=== PATIENT | female | born 1950 | race Caucasian/White ===

== ENCOUNTER 2019-08-19 13:15 | Observation (INO) | payer MEDICARE, OTHER ==
[~2019-08-19] VITALS: Ht 266.7 cm; Wt 60.9 kg
[2019-08-19] VITALS (7 sets, daily range): BP systolic 132–186; BP diastolic 65–90; Ht 266.7 cm; Wt 60.9 kg
[~2019-08-19 13:15] MED LIST: ASPIRIN EC81 M1 PO; BIOTIN5 MG PO; BYSTOLIC5 MG PO; CALCIUM CITRATE1 TAB PO; CELEXA20 MG PO; FISH OIL 1,2001 CA1 PO; FLAXSEED OIL1000 MG PO; MOBIC7.5 MG PO; MULTIPLE VITAMI1 TA1 PO; STOOL SOFTENER240 MG PO; SUPER B COMPLE150 MG PO; SYNTHROID88 MCG PO; VITAMIN D5000 UNIT PO; VITAMIN E400 UNI2 PO; VIVELLE-DO1 PATCH.B2 TD; probiotic
[2019-08-19] MEDS ORDERED: COZAAR100 MG PO (13:40)
[2019-08-19 14:08] LABS: BASOPHILS 0.5 % (0-2); EOSINOPHILS 2.2 % (0-7); HEMATOCRIT 39.4 % (36.0-48.0); HEMOGLOBIN 12.8 g/dL (12-16); IMMATURE GRANULOCYTES 0.3 % (0-5); MCH 32.1 pg (26.0-34.0); MCHC 32.5 g/dL (31.0-37.0); MCV 98.7 fL (80.0-100.0); MEAN PLATELET VOLUME 10.5 fL (7.4-10.4); MONOCYTES 12.6 % (2-11); NEUTROPHILS 55.4 % (40-80); RBC 3.99 10x6/uL (4.00-5.40); RDW 12.4 % (11.5-14.5); WBC 3.7 10x3/uL (4.8-10.8)
--- NOTE | 2019-08-19 14:10 | NUR ---
PT STATES SHE DOES NOT WANT TO TAKE NITRO BECAUSE SHE IS ARAID IT WILL MAKE HER BP TOO LOW.
[2019-08-19 14:16] LABS: CALC OSMOLALITY 275 mosm/kg (275-300); CARBON DIOXIDE 31.5 mmol/L (21.0-32.0); CHLORIDE - SERUM 103 mmol/L (98-107); CREATININE - SERUM 0.9 mg/dL (0.6-1.3); GLUCOSE 89 mg/dL (74-106); PLATELET COUNT 192 10x3/uL (130-400); POTASSIUM - SERUM 3.8 mmol/L (3.5-5.1); SODIUM 138 mmol/L (136-145); UREA NITROGEN 15 mg/dL (7-18); eGFR NON AFRICAN AMERICAN 66 mL/min (90-120)
[2019-08-19 14:18] LABS: PROTIME 13.2 SECONDS (11.6-15.0)
[2019-08-19 14:20] LABS: D-DIMER-QUANTITATIVE 0.3 ug/mLFEU (0.20-0.54)
[2019-08-19 14:32] LABS: ALBUMIN 3.6 g/dL (3.4-5.0); ALKALINE PHOSPHATASE 72 U/L (30-120); ALT (SGPT) 16 U/L (10-68); BILIRUBIN - TOTAL 0.45 mg/dL (0.2-1.3); CKMB 0.7 U/L (0.0-3.6); CREATINE KINASE 40 UL (21-215); MAGNESIUM - SERUM 1.9 mg/dL (1.8-2.4); PROTEIN - SERUM 7.1 g/dL (6.4-8.2); TROPONIN-I < 0.017 ng/mL (0.000-0.060)
--- NOTE | 2019-08-19 15:10 | NUR ---
PT RESTING IN POSITION OF COMFORT, DENIES NEEDS. PT IN NO DISTRESS, AT BEDSIDE. WILL CONTINUE TO MONITOR.
--- NOTE | 2019-08-19 15:50 | NUR ---
PT AMBULTORY TO BATHROOM AT THIS TIME.
--- NOTE | 2019-08-19 16:11 | NUR ---
NO CLINICAL CHANGES, PT RESTING IN POSITION OF COMFORT. PT DENIES NEEDS. WILL CONTINUE TO MONITOR. AT BEDSIDE.
--- NOTE | 2019-08-19 17:11 | NUR ---
PT RESTING IN POSITION OF COMFORT, DENIES FURTHER NEEDS. AT BEDSIDE. WILL CONTINUE TO MONITOR.
--- NOTE | 2019-08-19 19:00 | NUR ---
RECEIVED BEDSIDE REPORT. PATIENT IS ALERT AND ORIENTED, RESTING COMFORTABLY IN BED. RESPIRATIONS ARE EVEN AND UNLABORED. NO S/S OF DISTRESS. NO C/O PAIN. CALL LIGHT WITHIN REACH. WILL CPOC.
[2019-08-19 20:33] LABS: CKMB 0.6 U/L (0.0-3.6); CREATINE KINASE 37 UL (21-215); TROPONIN-I < 0.017 ng/mL (0.000-0.060)
[2019-08-20 02:47] LABS: BASOPHILS 0.7 % (0-2); EOSINOPHILS 2.9 % (0-7); HEMATOCRIT 37.7 % (36.0-48.0); HEMOGLOBIN 12.1 g/dL (12-16); IMMATURE GRANULOCYTES 0.2 % (0-5); LYMPHOCYTES 35.5 % (15-50); MCH 31.3 pg (26.0-34.0); MCHC 32.1 g/dL (31.0-37.0); MCV 97.7 fL (80.0-100.0); MONOCYTES 13.5 % (2-11); NEUTROPHILS 47.2 % (40-80); PLATELET COUNT 185 10x3/uL (130-400); RBC 3.86 10x6/uL (4.00-5.40); RDW 12.3 % (11.5-14.5); WBC 4.5 10x3/uL (4.8-10.8)
[2019-08-20 03:08] LABS: ALBUMIN 3.3 g/dL (3.4-5.0); ALKALINE PHOSPHATASE 63 U/L (30-120); BILIRUBIN - TOTAL 0.35 mg/dL (0.2-1.3); CALC OSMOLALITY 273 mosm/kg (275-300); CALCIUM 8.4 mg/dL (8.5-10.1); CARBON DIOXIDE 30.6 mmol/L (21.0-32.0); CHLORIDE - SERUM 104 mmol/L (98-107); CKMB 0.7 U/L (0.0-3.6); CREATINE KINASE 32 UL (21-215); CREATININE - SERUM 0.7 mg/dL (0.6-1.3); GLUCOSE 84 mg/dL (74-106); MAGNESIUM - SERUM 1.9 mg/dL (1.8-2.4); POTASSIUM - SERUM 3.9 mmol/L (3.5-5.1); PROTEIN - SERUM 6.2 g/dL (6.4-8.2); SODIUM 137 mmol/L (136-145); UREA NITROGEN 16 mg/dL (7-18); eGFR NON AFRICAN AMERICAN 88 mL/min (90-120)
[2019-08-20 03:09] LABS: ALT (SGPT) 5 U/L (10-68); TROPONIN-I < 0.017 ng/mL (0.000-0.060)
[2019-08-20 04:00] VITALS: BP 121/58
--- NOTE | 2019-08-20 07:15 | NUR ---
RECEIVED PT IN BED AAOX4 RESP UNLABORED SKIN W/D COLOR WNL NAD NOTED
[2019-08-20 08:40] VITALS: BP 183/65
[2019-08-20 09:00] VITALS: BP 128/58; BP 128/583
[2019-08-20 11:00] VITALS: BP 133/64
--- NOTE | 2019-08-20 14:30 | NUR ---
REVIEWED DISCHARGE INSTRUCTIONS WITH PT STATES UNDERSTANDING COPY GIVEN DCD SALINE LOCK TO LT HAND WITH IV CATHETER INTACT SITE FREE OF REDNESS OR EDEMA PT DISCHARGED TO HOME IN STABLE CONDITION LEFT UNIT WALKING WITH ALL PERSONAL BELONGINGS ESCORTED BY STAFF
--- NOTE | 2019-08-22 11:22 | CN ---
PATIENT NAME:WESTON RAYMUNDO MEDICAL RECORD: [id number] : 48 LOCATION:D.M2 D.2114 ADMIT DATE: 08/19/19 ACCOUNT: [id number] CONSULTING PHYSICIAN: MELANIE BUCIO MD REFERRING PHYSICIAN: ALEKSANDRA MARS MD DATE OF CONSULTATION: 08/20/2019 HISTORY OF PRESENT ILLNESS: A 68-year-old female with history of hypertension, "leaky valve" apparently with chest pain, right upper extremity and shoulder, pains wax and wane, radiation to the right shoulder than the left shoulder, then back to the scapula, not consistent with exertion, has reported more tiredness, fatigue, although has not been exercising previously. We are asked to see her concerning her cardiovascular status. PAST MEDICAL HISTORY: Includes; 1. History of hypertension. 2. Hypothyroidism, on replacement. 3. Questionable leaky valve. 4. Anxiety. ALLERGIES: LISINOPRIL, HYDROCODONE. MEDICATIONS: Include losartan 50 mg p.o. b.i.d., Celexa 20 every day, Mobic 7.5 b.i.d., Synthroid 44 mcg daily. SOCIAL HISTORY: Nonsmoker, nondrinker. Easily does take care of all her ADLs. Does walk on a regular basis typically. REVIEW OF SYSTEMS: The patient reports easy bruising but reports no swollen glands. The patient reports no fever, no night sweats, no significant weight gain, no significant weight loss. No significant exercise tolerance. The patient reports no dry eyes, no irritation, no vision change. Patient reports no difficulty hearing and no ear pain. Patient reports no frequent nose bleeds or nose and sinus problems. Patient reports on arm pain on exertion. No shortness of breath while lying down. No history of heart murmur. Patient reports no cough, no wheezing or coughing up blood. Patient reports no abdominal pain, no vomiting. Normal appetite. No diarrhea and not vomiting blood. No nausea and no constipation. Patient reports no incontinence. No difficulty urinating. No hematuria. No increased frequency. Patient reports no muscle aches. No weakness, no arthralgias, no back pain. No swelling of the extremities. Patient reports no abnormal mole, no jaundice, no rashes. Reports no loss of consciousness. No weakness and no numbness. No seizures, dizziness, or headaches. The patient reports no depression, no sleep disturbance, feeling safe in a relationship and no alcohol abuse. Patient reports on fatigue. Reports no runny nose or sinus pressure. No itching, no hives, and no frequent sneezing. PHYSICAL EXAMINATION: GENERAL: Pleasant female in no acute distress, appears younger than stated age. VITAL SIGNS: Blood pressure 128/83, pulse 55 and regular. HEENT: Normocephalic, atraumatic. NECK: No bruits noted. HEART: Regular, soft I/ systolic ejection murmur. LUNGS: Good air excursion. ABDOMEN: Soft, nontender. CONSULT REPORT [id number] WESTON RAYMUNDO EXTREMITIES: Pulses 2+ with no edema. NEUROLOGIC: Grossly intact. EKG shows LVH. Cardiac enzymes are negative, noted no acute EKG changes, probably benefit from repeat echo at some point as well as Cardiolite stress testing. She refers to this with her usual tours captain, Dr. Amato at [facility]. Given negative enzymes and noted no acute EKG changes, I see no contraindication of this, we will be able to see back in the future during this admission if needed. TRANSINT:[id number] Voice Confirmation ID: [id number] DOCUMENT ID: [id number] MELANIE BUCIO MD at 1122 CC: [id number] DICTATION DATE: 08/20/19 0956 KNITTER MECHANIC: 08/20/19 1247 DIS IN 08/20/19 [place] [id number] [place] [id number]
== END 2019-08-20 14:30 | disposition home or self-care (01) ==
LOC: D.ER 13:15 → D.M2 16:20 → OBSVTIME 16:21 → D.M2 08-20 14:30
PROVIDERS: Family Medicine; ADMIT Family Medicine; ATTEND Family Medicine
DX: I20.0 Unstable angina (principal); E03.9 Hypothyroidism, unspecified; I10 Essential (primary) hypertension; D72.819 Decreased white blood cell count, unspecified; M19.90 Unspecified osteoarthritis, unspecified site; M85.80 Other specified disorders of bone density and structure, unspecified site; F41.8 Other specified anxiety disorders; G89.29 Other chronic pain

== ENCOUNTER → 2019-10-07 09:16 | Outpatient (CLI) | payer MEDICARE, OTHER ==
[~2019-10-07 09:16] MED LIST changes: +COZAAR100 MG PO
== END | disposition home or self-care (01) ==
LOC: D.NM 09:16
PROVIDERS: ATTEND Family Medicine
DX: R10.9 Unspecified abdominal pain (principal)